=== PATIENT | male | born 1945 | race Caucasian/White ===

== ENCOUNTER 2018-09-25 12:06 | Emergency (ER) | payer SELFPAY ==
[~2018-09-25] VITALS: Ht 170.2 cm; Wt 73.3 kg
[2018-09-25 12:32] VITALS: BP 108/85
[2018-09-25] MEDS ORDERED: CEFTRIAXONE PMX 1GM/50ML 50 ML IVPB ONE (13:30)
[2018-09-25] MEDS ORDERED: AZITHROMYCIN 500 MG in SODIUM CHLORIDE 0.9% 250 ML IVPB ONE (13:30)
== END 2018-09-25 14:22 | disposition home or self-care (01) ==
LOC: ED 14:20
DX: T83.098A Other mechanical complication of other urinary catheter, initial encounter (principal); Z87.891 Personal history of nicotine dependence; Z85.46 Personal history of malignant neoplasm of prostate
CPT/HCPCS: 99283

== ENCOUNTER 2020-01-18 09:31 | Emergency (ER) | payer SELFPAY ==
[~2020-01-18] VITALS: Ht 180.3 cm; Wt 80.0 kg
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
[2020-01-18] MEDS ORDERED: KETOROLAC 30 MG/1 ML IV ONE (10:00)
[2020-01-18] MEDS ORDERED: METHOCARBAMOL 750 MG TABLET PO ONE (10:00)
[2020-01-18] MEDS ORDERED: METHOCARBAMOL 750 MG TABLET ONE (10:06)
[2020-01-18] MEDS ORDERED: KETOROLAC 30 MG/1 ML ONE (10:06)
[2020-01-18 10:40] VITALS: BP 106/53
--- NOTE | 2020-01-18 10:40 | NUR ---
MEDICATED FOR PAIN, PT BACK FROM IMAGING.
--- NOTE | 2020-01-18 11:27 | NUR ---
DISUCSSED POC TO BE DC. PT IS LOOKING FOR RIDE HOME. LIVES IN [facility]
--- NOTE | 2020-01-18 11:57 | NUR ---
Patient/Caregiver given discharge instructions and they have confirmed that they understand the instructions. Patient ambulatory with steady gait.
== END 2020-01-18 12:08 | disposition home or self-care (01) ==
LOC: ED 12:05
DX: S29.011A Strain of muscle and tendon of front wall of thorax, initial encounter (principal); M54.5 Low back pain; Z85.46 Personal history of malignant neoplasm of prostate; V57.0XXA Driver of pick-up truck or van injured in collision with fixed or stationary object in nontraffic accident, initial encounter; Y93.89 Activity, other specified; Y92.410 Unspecified street and highway as the place of occurrence of the external cause; Y99.8 Other external cause status
CPT/HCPCS: 71250; 96374; 99284; J1885